=== PATIENT | female | born 1975 | race Caucasian/White ===

== ENCOUNTER 2021-12-26 13:09 | Inpatient (IN) | payer OTHER ==
[~2021-12-26] VITALS: Ht 165.1 cm; Wt 84.4 kg
[2021-12-26 13:42] VITALS: BP 157/91
[2021-12-26 14:41] LABS: BASO % 0.2 % (0.0-1.0); EOS % 0.2 % (1.0-4.0); HEMATOCRIT 38.5 % (37.0-47.0); LYMPH # 1.2 10*3/uL (1.3-4.4); LYMPH % 6.9 % (27.0-41.0); MEAN CELL VOLUME 89.3 fl (81.0-99.0); MEAN CORPUSCULAR HGB 29.9 pg (27.0-31.0); MEAN CORPUSCULAR HGB CONC 33.5 g/dl (33.0-37.0); MEAN PLATELET VOLUME 8.9 fl (9.6-12.3); MONO # 1.5 10*3/uL (0.1-1.0); MONO % 8.1 % (3.0-9.0); NEUT # 14.9 10*3/uL (2.3-7.9); NEUT % 83.9 % (47.0-73.0); PLATELET COUNT AUTOMATED 302 10*3/uL (130-400); RED BLOOD COUNT 4.31 10*6/uL (4.10-5.10); RED CELL DISTRI WIDTH 12.5 % (0-14.5); WHITE BLOOD COUNT 17.8 10*3/uL (4.8-10.8)
[2021-12-26 14:58] LABS: ALKALINE PHOSPHATASE 96 U/L (45-117); BUN 27 mg/dl (7-24); CHLORIDE 104 mmol/L (98-107); CPK 419 U/L (26-192); CREATININE 1.09 mg/dL (0.55-1.02); POTASSIUM 4.4 mmol/L (3.5-5.1); SGOT/AST 23 IU/L (3-35); SGPT/ALT 25 U/L (12-78); SODIUM 134 mmol/L (136-145); TOTAL PROTEIN 8.1 gm/dL (6.4-8.2)
[2021-12-26 15:09] LABS: ACT PARTIAL THROMBO TIME 32.8 SECONDS (20.0-32.1)
[2021-12-26 17:38] VITALS: BP 125/78
[2021-12-26 18:06] LABS: BILIRUBIN Negative (Negative); BLOOD Negative (Negative); CLARITY Cloudy (Clear); COLOR Yellow (Yellow); GLUCOSE Negative (Negative); KETONE Negative (Negative); LEUKO ESTERASE 2+ (Negative); NITRITE Negative (Negative); PH 5.5 (4.5-8.0); SPECIFIC GRAVITY >= 1.030 (1.001-1.030)
[2021-12-26 18:12] LABS: BACTERIA 1+; URINE AMPHETAMINES > 1000 (1000ng/ml); URINE BARBITURATES < 200 (200ng/ml); URINE BENZODIAZEPINES < 200 (200ng/ml); URINE CANNABINOIDS (THC) > 50 (50ng/ml); URINE COCAINE > 300 (300ng/ml); URINE METHADONE < 300 (300ng/ml); URINE OPIATES > 300 (300ng/ml)
[2021-12-26 18:15] LABS: URINE PHENCYCLIDINE < 25 (25ng/ml)
[2021-12-26 18:40] VITALS: BP 104/83
[2021-12-27] VITALS: BP 121/82
[2021-12-27 04:00] VITALS: BP 114/74
[2021-12-27 05:18] LABS: ALKALINE PHOSPHATASE 92 U/L (45-117); BUN 21 mg/dl (7-24); CHLORIDE 107 mmol/L (98-107); CHOLESTEROL 181 mg/dL (<200); CREATININE 0.88 mg/dL (0.55-1.02); POTASSIUM 3.8 mmol/L (3.5-5.1); SGOT/AST 14 IU/L (3-35); SGPT/ALT 22 U/L (12-78); SODIUM 137 mmol/L (136-145); TOTAL PROTEIN 6.9 gm/dL (6.4-8.2); TRIGLYCERIDES 111 mg/dl (<150)
[2021-12-27 05:19] LABS: CPK 243 U/L (26-192); LDL CHOLESTEROL 98 mg/dL (9-159)
[2021-12-27 06:24] LABS: BASO % 0.3 % (0.0-1.0); EOS # 0.2 10*3/uL (0.0-0.4); EOS % 1.5 % (1.0-4.0); HEMATOCRIT 36.4 % (37.0-47.0); LYMPH # 1.7 10*3/uL (1.3-4.4); LYMPH % 15.3 % (27.0-41.0); MEAN CORPUSCULAR HGB 29.7 pg (27.0-31.0); MEAN CORPUSCULAR HGB CONC 31.9 g/dl (33.0-37.0); MEAN PLATELET VOLUME 9.8 fl (9.6-12.3); MONO # 0.9 10*3/uL (0.1-1.0); MONO % 8.1 % (3.0-9.0); NEUT # 8.2 10*3/uL (2.3-7.9); NEUT % 74.3 % (47.0-73.0); PLATELET COUNT AUTOMATED 262 10*3/uL (130-400); RED BLOOD COUNT 3.91 10*6/uL (4.10-5.10)
[2021-12-27 06:36] LABS: MEAN CELL VOLUME 93.1 fl (81.0-99.0)
[2021-12-27 07:08] LABS: VITAMIN D, 25-HYDROXY 11.5 ng/mL (30-100)
[2021-12-27 08:00] VITALS: BP 121/69
[2021-12-27 12:00] VITALS: BP 117/69
[2021-12-27 16:00] VITALS: BP 110/68
[2021-12-27] MEDS ORDERED: CLINDAMYCIN HC300 MG PO (17:24)
[2021-12-27] MEDS ORDERED: CEPHALEXIN500 M1 PO (17:24)
[2021-12-27 20:00] VITALS: BP 113/62
[2021-12-28] VITALS: BP 101/65
[2021-12-28 06:07] LABS: HBSAG Negative (Negative); HEP B CORE AB, IGM Negative (Negative)
[2021-12-28 06:23] LABS: BUN 12 mg/dl (7-24); CHLORIDE 109 mmol/L (98-107); SODIUM 141 mmol/L (136-145)
[2021-12-28 06:31] LABS: BASO % 0.3 % (0.0-1.0); EOS # 0.1 10*3/uL (0.0-0.4); EOS % 1.9 % (1.0-4.0); HEMATOCRIT 33.4 % (37.0-47.0); LYMPH # 1.8 10*3/uL (1.3-4.4); LYMPH % 25.7 % (27.0-41.0); MEAN CELL VOLUME 92.8 fl (81.0-99.0); MEAN CORPUSCULAR HGB 29.7 pg (27.0-31.0); MEAN PLATELET VOLUME 9.7 fl (9.6-12.3); MONO # 0.6 10*3/uL (0.1-1.0); MONO % 8.5 % (3.0-9.0); NEUT # 4.4 10*3/uL (2.3-7.9); PLATELET COUNT AUTOMATED 238 10*3/uL (130-400); RED CELL DISTRI WIDTH 12.8 % (0-14.5)
[2021-12-28 08:00] VITALS: BP 109/62
[2021-12-30 15:07] LABS: HEPATITIS C ANTIBODY 7.5 (0.0-0.9)
== END 2021-12-28 13:50 | disposition home or self-care (01) | DRG 872 ==
LOC: ED 13:09 → EDHOLD 15:13 → 4E 15:13 → ICCU 16:50 → 4E 12-27 12:26
PROVIDERS: Emergency Medicine; Internal Medicine; Internal Medicine Infectious Disease; Student in an Organized Health Care Education/Training Program; ADMIT Emergency Medicine; ATTEND Emergency Medicine
DX: A41.9 Sepsis, unspecified organism (principal); L03.116 Cellulitis of left lower limb; E87.1 Hypo-osmolality and hyponatremia; E80.6 Other disorders of bilirubin metabolism; E78.5 Hyperlipidemia, unspecified; R73.9 Hyperglycemia, unspecified; I50.9 Heart failure, unspecified; F32.A Depression, unspecified; Z78.9 Other specified health status; Z88.8 Allergy status to other drugs, medicaments and biological substances; Z90.49 Acquired absence of other specified parts of digestive tract

== ENCOUNTER 2022-01-22 11:53 | Inpatient (IN) | payer MEDICAID ==
[~2022-01-22] VITALS: Ht 160 cm; Wt 83.5 kg
[~2022-01-22 11:53] MED LIST: CEPHALEXIN500 M1 PO; CLINDAMYCIN HC300 MG PO
[2022-01-22 12:01] VITALS: BP 111/84
[2022-01-22 12:40] LABS: BASO # 0.1 10*3/uL (0.0-0.1); BASO % 0.4 % (0.0-1.0); EOS # 0.1 10*3/uL (0.0-0.4); EOS % 0.5 % (1.0-4.0); HEMATOCRIT 38.3 % (37.0-47.0); LYMPH # 1.1 10*3/uL (1.3-4.4); LYMPH % 8.3 % (27.0-41.0); MEAN CELL VOLUME 89.3 fl (81.0-99.0); MEAN CORPUSCULAR HGB 29.8 pg (27.0-31.0); MEAN CORPUSCULAR HGB CONC 33.4 g/dl (33.0-37.0); MONO # 1.1 10*3/uL (0.1-1.0); MONO % 8.6 % (3.0-9.0); NEUT # 10.7 10*3/uL (2.3-7.9); NEUT % 81.5 % (47.0-73.0); PLATELET COUNT AUTOMATED 312 10*3/uL (130-400); RED BLOOD COUNT 4.29 10*6/uL (4.10-5.10); RED CELL DISTRI WIDTH 12.6 % (0-14.5); WHITE BLOOD COUNT 13.1 10*3/uL (4.8-10.8)
[2022-01-22 13:00] LABS: CREATININE 1.44 mg/dL (0.55-1.02); TOTAL PROTEIN 8.3 gm/dL (6.4-8.2)
[2022-01-22 15:04] LABS: BILIRUBIN Negative (Negative); BLOOD Negative (Negative); CLARITY Cloudy (Clear); COLOR Dark Yellow (Yellow); GLUCOSE Negative (Negative); KETONE Trace (Negative); LEUKO ESTERASE Trace (Negative); NITRITE Negative (Negative); SPECIFIC GRAVITY >= 1.030 (1.001-1.030)
[2022-01-22 15:12] LABS: EPITHELIAL CELLS 21-30; WBC 16-20 wbc/hpf (0-5)
[2022-01-22 15:13] LABS: BACTERIA 2+
[2022-01-22 15:48] LABS: URINE AMPHETAMINES > 1000 (1000ng/ml); URINE BARBITURATES < 200 (200ng/ml); URINE BENZODIAZEPINES < 200 (200ng/ml); URINE CANNABINOIDS (THC) > 50 (50ng/ml); URINE COCAINE < 300 (300ng/ml); URINE METHADONE < 300 (300ng/ml); URINE OPIATES < 300 (300ng/ml)
[2022-01-22 15:53] LABS: URINE PHENCYCLIDINE < 25 (25ng/ml)
[2022-01-22 16:00] VITALS: BP 110/78
[2022-01-22 17:12] VITALS: BP 122/78
[2022-01-22 20:30] VITALS: BP 120/56
[2022-01-23] VITALS: BP 93/67
[2022-01-23 06:36] LABS: BASO % 0.3 % (0.0-1.0); EOS # 0.2 10*3/uL (0.0-0.4); EOS % 2.1 % (1.0-4.0); HEMATOCRIT 34.1 % (37.0-47.0); LYMPH # 1.5 10*3/uL (1.3-4.4); LYMPH % 18.9 % (27.0-41.0); MEAN CELL VOLUME 91.7 fl (81.0-99.0); MEAN CORPUSCULAR HGB 29.8 pg (27.0-31.0); MEAN CORPUSCULAR HGB CONC 32.6 g/dl (33.0-37.0); MEAN PLATELET VOLUME 9.4 fl (9.6-12.3); MONO # 0.9 10*3/uL (0.1-1.0); MONO % 11.5 % (3.0-9.0); NEUT # 5.3 10*3/uL (2.3-7.9); NEUT % 66.2 % (47.0-73.0); PLATELET COUNT AUTOMATED 264 10*3/uL (130-400); RED BLOOD COUNT 3.72 10*6/uL (4.10-5.10); RED CELL DISTRI WIDTH 12.7 % (0-14.5)
[2022-01-23 06:57] LABS: CREATININE 1.35 mg/dL (0.55-1.02); URIC ACID 5.3 mg/dL (2.6-6.0)
[2022-01-23 09:00] VITALS: BP 114/84
[2022-01-23 12:00] VITALS: BP 105/65
[2022-01-23 16:00] VITALS: BP 105/64
[2022-01-23 20:00] VITALS: BP 117/70
[2022-01-23 23:15] VITALS: BP 109/79
[2022-01-24] VITALS: BP 123/73
[2022-01-24 00:17] LABS: BUN 19 mg/dl (7-24); CHLORIDE 107 mmol/L (98-107); CREATININE 1.08 mg/dL (0.55-1.02); POTASSIUM 4.2 mmol/L (3.5-5.1); SODIUM 138 mmol/L (136-145)
[2022-01-24 04:35] LABS: BUN 19 mg/dl (7-24); CHLORIDE 109 mmol/L (98-107); CREATININE 1.06 mg/dL (0.55-1.02); POTASSIUM 4.3 mmol/L (3.5-5.1); SODIUM 140 mmol/L (136-145)
[2022-01-24 08:00] VITALS: BP 109/66
[2022-01-24] MEDS ORDERED: VISTARIL25 M2 PO (08:36)
[2022-01-24] MEDS ORDERED: AMOX-CLAV 875-1 EACH PO (08:42)
== END 2022-01-24 12:00 | disposition home or self-care (01) | DRG 720 ==
LOC: ED 11:53 → 5E 13:58 → EDHOLD 13:58 → 5E 19:58
PROVIDERS: Internal Medicine; Nurse Practitioner Family; Registered Nurse; ADMIT Internal Medicine; ATTEND Internal Medicine
DX: A41.9 Sepsis, unspecified organism (principal); L03.115 Cellulitis of right lower limb; N17.0 Acute kidney failure with tubular necrosis; E87.1 Hypo-osmolality and hyponatremia; F17.210 Nicotine dependence, cigarettes, uncomplicated; F20.0 Paranoid schizophrenia; F32.A Depression, unspecified; F41.9 Anxiety disorder, unspecified; F14.90 Cocaine use, unspecified, uncomplicated; F15.90 Other stimulant use, unspecified, uncomplicated; Z88.8 Allergy status to other drugs, medicaments and biological substances; Z90.49 Acquired absence of other specified parts of digestive tract

== ENCOUNTER 2022-02-28 01:55 | Emergency (ER) | payer MEDICAID ==
[~2022-02-28 01:55] MED LIST changes: +AMOX-CLAV 875-1 EACH PO; +VISTARIL25 M2 PO
== END 2022-02-28 03:51 | disposition home or self-care (01) ==
LOC: ED 01:55
DX: T40.1X1A Poisoning by heroin, accidental (unintentional), initial encounter (principal); Z88.8 Allergy status to other drugs, medicaments and biological substances; Z90.49 Acquired absence of other specified parts of digestive tract; F14.90 Cocaine use, unspecified, uncomplicated; F17.210 Nicotine dependence, cigarettes, uncomplicated; Y92.89 Other specified places as the place of occurrence of the external cause

== ENCOUNTER 2022-04-16 21:06 | Emergency (ER) | payer MEDICAID ==
[~2022-04-16] VITALS: Ht 165.1 cm; Wt 86.2 kg
[2022-04-16 21:43] LABS: BASO # 0.1 10*3/uL (0.0-0.1); BASO % 0.5 % (0.0-1.0); EOS # 0.2 10*3/uL (0.0-0.4); EOS % 1.6 % (1.0-4.0); HEMATOCRIT 39.9 % (37.0-47.0); LYMPH % 18.7 % (27.0-41.0); MEAN CELL VOLUME 87.9 fl (81.0-99.0); MEAN CORPUSCULAR HGB 28.2 pg (27.0-31.0); MEAN CORPUSCULAR HGB CONC 32.1 g/dl (33.0-37.0); MEAN PLATELET VOLUME 8.7 fl (9.6-12.3); MONO # 1.1 10*3/uL (0.1-1.0); MONO % 9.8 % (3.0-9.0); NEUT # 7.4 10*3/uL (2.3-7.9); PLATELET COUNT AUTOMATED 384 10*3/uL (130-400); RED BLOOD COUNT 4.54 10*6/uL (4.10-5.10); RED CELL DISTRI WIDTH 13.2 % (0-14.5); WHITE BLOOD COUNT 10.9 10*3/uL (4.8-10.8)
[2022-04-16 21:58] LABS: POTASSIUM 4.3 mmol/L (3.4-5.1); TOTAL PROTEIN 7.6 gm/dL (6.0-8.0)
== END 2022-04-17 00:01 | disposition home or self-care (01) ==
LOC: ED 21:06
PROVIDERS: Emergency Medicine
DX: R07.89 Other chest pain (principal); Z88.8 Allergy status to other drugs, medicaments and biological substances; Z90.49 Acquired absence of other specified parts of digestive tract; F17.210 Nicotine dependence, cigarettes, uncomplicated; F14.90 Cocaine use, unspecified, uncomplicated

== ENCOUNTER 2022-10-29 13:27 | Emergency (ER) | payer MEDICAID ==
[~2022-10-29] VITALS: Ht 165.1 cm; Wt 92.1 kg
[2022-10-29 14:18] LABS: BASO % 0.6 % (0.0-1.0); EOS # 0.3 10*3/uL (0.0-0.4); EOS % 4.7 % (1.0-4.0); LYMPH # 0.9 10*3/uL (1.3-4.4); LYMPH % 13.3 % (27.0-41.0); MEAN CELL VOLUME 90.7 fl (81.0-99.0); MEAN CORPUSCULAR HGB 29.3 pg (27.0-31.0); MEAN CORPUSCULAR HGB CONC 32.3 g/dl (33.0-37.0); MEAN PLATELET VOLUME 8.6 fl (9.6-12.3); MONO # 0.4 10*3/uL (0.1-1.0); MONO % 5.5 % (3.0-9.0); NEUT # 5.3 10*3/uL (2.3-7.9); NEUT % 74.5 % (47.0-73.0); PLATELET COUNT AUTOMATED 279 10*3/uL (130-400); RED BLOOD COUNT 4.41 10*6/uL (4.10-5.10); RED CELL DISTRI WIDTH 12.5 % (0-14.5); WHITE BLOOD COUNT 7.1 10*3/uL (4.8-10.8)
[2022-10-29 14:39] LABS: ALKALINE PHOSPHATASE 124 U/L (46-116); BUN 7 mg/dl (9-23); CHLORIDE 105 mmol/L (98-107); POTASSIUM 3.5 mmol/L (3.4-5.1); SGPT/ALT 9 U/L (10-49); TOTAL PROTEIN 7.1 gm/dL (6.0-8.0)
[2022-10-29] MEDS ORDERED: AVPAK AZITHROM250 MG PO (15:37)
[2022-10-29] MEDS ORDERED: PREDNISONE20 M1 PO (15:37)
== END 2022-10-29 15:48 | disposition home or self-care (01) ==
LOC: ED 13:27
PROVIDERS: Nurse Practitioner
DX: J44.1 Chronic obstructive pulmonary disease with (acute) exacerbation (principal); I11.0 Hypertensive heart disease with heart failure; I50.9 Heart failure, unspecified; F41.9 Anxiety disorder, unspecified; F31.9 Bipolar disorder, unspecified; F90.9 Attention-deficit hyperactivity disorder, unspecified type; Z88.8 Allergy status to other drugs, medicaments and biological substances; Z90.49 Acquired absence of other specified parts of digestive tract; F17.210 Nicotine dependence, cigarettes, uncomplicated; F14.90 Cocaine use, unspecified, uncomplicated

== ENCOUNTER 2022-12-11 19:03 | Emergency (ER) | payer SELFPAY ==
[~2022-12-11] VITALS: Ht 165.1 cm; Wt 89.4 kg
[~2022-12-11 19:03] MED LIST changes: +AVPAK AZITHROM250 MG PO; +PREDNISONE20 M1 PO
[2022-12-11 20:03] LABS: HEMATOCRIT 33.5 % (37.0-47.0); MEAN CELL VOLUME 89.3 fl (81.0-99.0); MEAN CORPUSCULAR HGB 29.9 pg (27.0-31.0); MEAN CORPUSCULAR HGB CONC 33.4 g/dl (33.0-37.0); MEAN PLATELET VOLUME 8.3 fl (9.6-12.3); PLATELET COUNT AUTOMATED 227 10*3/uL (130-400); RED BLOOD COUNT 3.75 10*6/uL (4.10-5.10); RED CELL DISTRI WIDTH 12.8 % (0-14.5); WHITE BLOOD COUNT 7.5 10*3/uL (4.8-10.8)
[2022-12-11 20:11] LABS: MANUAL DIFF REFLEX YES
[2022-12-11 20:27] LABS: TOTAL CELLS COUNTED 100 #CELLS
[2022-12-11 20:28] LABS: PLATELET SUFFICIENCY NORMAL (NORMAL)
[2022-12-11 20:39] LABS: ALKALINE PHOSPHATASE 88 U/L (46-116); BUN 8 mg/dl (9-23); CHLORIDE 107 mmol/L (98-107); POTASSIUM 3.5 mmol/L (3.4-5.1); SGPT/ALT 13 U/L (10-49); TOTAL PROTEIN 6.1 gm/dL (6.0-8.0)
[2022-12-11] MEDS ORDERED: Motrin,Rufen800 MG PO (21:04)
[2022-12-11] MEDS ORDERED: TYLENOL325 M1 PO (21:04)
== END 2022-12-11 21:13 | disposition home or self-care (01) ==
LOC: ED 19:03
PROVIDERS: Physician Assistant Medical
DX: M54.12 Radiculopathy, cervical region (principal); R60.0 Localized edema; I11.0 Hypertensive heart disease with heart failure; I50.9 Heart failure, unspecified; F41.9 Anxiety disorder, unspecified; F31.9 Bipolar disorder, unspecified; F90.9 Attention-deficit hyperactivity disorder, unspecified type; Z88.8 Allergy status to other drugs, medicaments and biological substances; Z90.49 Acquired absence of other specified parts of digestive tract; F17.210 Nicotine dependence, cigarettes, uncomplicated; F14.90 Cocaine use, unspecified, uncomplicated

== ENCOUNTER 2023-01-11 18:07 | Emergency (ER) | payer OTHER ==
[~2023-01-11] VITALS: Ht 170.1 cm; Wt 72.6 kg
[~2023-01-11 18:07] MED LIST changes: +Motrin,Rufen800 MG PO; +TYLENOL325 M1 PO
== END 2023-01-11 20:56 | disposition home or self-care (01) ==
LOC: ED 18:07
DX: T40.601A Poisoning by unspecified narcotics, accidental (unintentional), initial encounter (principal); R40.4 Transient alteration of awareness; J44.9 Chronic obstructive pulmonary disease, unspecified; F41.9 Anxiety disorder, unspecified; F31.9 Bipolar disorder, unspecified; I11.0 Hypertensive heart disease with heart failure; I50.9 Heart failure, unspecified; M10.9 Gout, unspecified; R73.9 Hyperglycemia, unspecified; E78.5 Hyperlipidemia, unspecified; E87.1 Hypo-osmolality and hyponatremia; Z88.8 Allergy status to other drugs, medicaments and biological substances; Z90.49 Acquired absence of other specified parts of digestive tract; Z98.890 Other specified postprocedural states; F12.90 Cannabis use, unspecified, uncomplicated; F17.210 Nicotine dependence, cigarettes, uncomplicated; Y92.009 Unspecified place in unspecified non-institutional (private) residence as the place of occurrence of the external cause

== ENCOUNTER 2023-08-02 12:07 | Emergency (ER) | payer OTHER ==
[~2023-08-02] VITALS: Ht 165.1 cm; Wt 77.1 kg
[2023-08-02] MEDS ORDERED: IBUPROFEN 800 MG TAB PO ONE (12:25)
[2023-08-02] MEDS ORDERED: Motrin,Rufen800 MG PO (12:57)
== END 2023-08-02 13:02 | disposition home or self-care (01) ==
LOC: ED 12:07
DX: G58.9 Mononeuropathy, unspecified (principal); J44.9 Chronic obstructive pulmonary disease, unspecified; F41.9 Anxiety disorder, unspecified; F31.9 Bipolar disorder, unspecified; M10.9 Gout, unspecified; E78.5 Hyperlipidemia, unspecified; I11.0 Hypertensive heart disease with heart failure; I50.9 Heart failure, unspecified; F90.9 Attention-deficit hyperactivity disorder, unspecified type; F17.210 Nicotine dependence, cigarettes, uncomplicated; F14.90 Cocaine use, unspecified, uncomplicated; Z88.8 Allergy status to other drugs, medicaments and biological substances; Z90.49 Acquired absence of other specified parts of digestive tract

== ENCOUNTER 2023-11-12 17:31 | Emergency (ER) | payer MEDICARE, OTHER ==
[~2023-11-12] VITALS: Ht 165.1 cm; Wt 72.6 kg
[2023-11-12] MEDS ORDERED: BENZTROPINE MESY1 MG PO (17:58)
[2023-11-12] MEDS ORDERED: SERTRALINE HYD100 MG PO (17:58)
[2023-11-12] MEDS ORDERED: HYDROXYZINE PAM50 MG PO (17:58)
[2023-11-12] MEDS ORDERED: VRAYLAR4.5 MG PO (17:58)
[2023-11-12] MEDS ORDERED: Albuterol Sulf/Ipratropium 3 ML VIAL NEB ONE (18:05)
[2023-11-12] MEDS ORDERED: methylPREDNISolone sod succ 125 MG VIAL IM ONE (18:05)
[2023-11-12] MEDS ORDERED: PREDNISONE50 MG PO (20:31)
[2023-11-12] MEDS ORDERED: ALBUTEROL 8 GM INHALER INH ONE (20:35)
== END 2023-11-12 20:49 | disposition home or self-care (01) ==
LOC: ED 17:31
DX: J40 Bronchitis, not specified as acute or chronic (principal); I11.0 Hypertensive heart disease with heart failure; I50.9 Heart failure, unspecified; F41.9 Anxiety disorder, unspecified; F31.9 Bipolar disorder, unspecified; F90.9 Attention-deficit hyperactivity disorder, unspecified type; F17.210 Nicotine dependence, cigarettes, uncomplicated; F14.90 Cocaine use, unspecified, uncomplicated; Z88.8 Allergy status to other drugs, medicaments and biological substances; Z90.49 Acquired absence of other specified parts of digestive tract

== ENCOUNTER → 2023-11-22 | Outpatient (CLI) | payer MEDICARE, OTHER ==
[~2023-11-22] MED LIST changes: +BENZTROPINE MESY1 MG PO; +HYDROXYZINE PAM50 MG PO; +PREDNISONE50 MG PO; +SERTRALINE HYD100 MG PO; +VRAYLAR4.5 MG PO
[2023-11-22 17:44] LABS: BASO % 0.5 % (0.0-1.0); EOS # 0.2 10*3/uL (0.0-0.4); HEMATOCRIT 43.8 % (37.0-47.0); LYMPH # 2.7 10*3/uL (1.3-4.4); LYMPH % 36.5 % (27.0-41.0); MEAN CELL VOLUME 91.3 fl (81.0-99.0); MEAN CORPUSCULAR HGB 28.1 pg (27.0-31.0); MEAN CORPUSCULAR HGB CONC 30.8 g/dl (33.0-37.0); MONO # 0.5 10*3/uL (0.1-1.0); MONO % 6.9 % (3.0-9.0); NEUT # 3.9 10*3/uL (2.3-7.9); NEUT % 52.6 % (47.0-73.0); PLATELET COUNT AUTOMATED 353 10*3/uL (130-400); RED CELL DISTRI WIDTH 13.1 % (0-14.5); WHITE BLOOD COUNT 7.4 10*3/uL (4.8-10.8)
[2023-11-22 18:06] LABS: ALKALINE PHOSPHATASE 111 U/L (46-116); BUN 11 mg/dl (9-23); CHLORIDE 103 mmol/L (98-107); CHOLESTEROL 178 mg/dL (<200); LDL CHOLESTEROL 82 mg/dL (9-159); POTASSIUM 3.7 mmol/L (3.4-5.1); SGPT/ALT 7 U/L (5-49); TOTAL PROTEIN 7.6 gm/dL (6.0-8.0); TRIGLYCERIDES 284 mg/dl (<150)
[2023-11-22 18:07] LABS: PHENYTOIN (DILANTIN) < 2.0 ug/ml (10-20)
== END | disposition home or self-care (01) ==
LOC: LAB 17:19
PROVIDERS: ATTEND Nurse Practitioner Family
DX: R56.9 Unspecified convulsions (principal); Z79.899 Other long term (current) drug therapy

== ENCOUNTER → 2023-12-06 | Outpatient (CLI) | payer MEDICARE, OTHER ==
[2023-12-06 14:10] LABS: TOTAL PROTEIN 7.7 gm/dL (6.0-8.0)
== END | disposition home or self-care (01) ==
LOC: LAB 13:28
PROVIDERS: ATTEND Nurse Practitioner Family
DX: R56.9 Unspecified convulsions (principal)

== ENCOUNTER 2023-12-18 10:09 | Emergency (ER) | payer OTHER ==
[~2023-12-18] VITALS: Ht 165.1 cm; Wt 84.4 kg
[2023-12-18] MEDS ORDERED: SODIUM CHLORIDE 0.9% 1,000 ML IV ONE (10:30)
[2023-12-18] MEDS ORDERED: MORPHINE Sulfate 2 MG/ML SYR IV ONE (10:30)
[2023-12-18] MEDS ORDERED: IOHEXOL 300 MG/ML 100 ML VIAL IV ONE (10:35)
[2023-12-18 10:53] LABS: BASO % 0.2 % (0.0-1.0); EOS % 0.2 % (1.0-4.0); HEMATOCRIT 41.1 % (37.0-47.0); LYMPH # 1.5 10*3/uL (1.3-4.4); LYMPH % 12.7 % (27.0-41.0); MEAN CELL VOLUME 86.5 fl (81.0-99.0); MEAN CORPUSCULAR HGB 29.1 pg (27.0-31.0); MEAN CORPUSCULAR HGB CONC 33.6 g/dl (33.0-37.0); MEAN PLATELET VOLUME 8.7 fl (9.6-12.3); MONO # 0.3 10*3/uL (0.1-1.0); MONO % 2.8 % (3.0-9.0); NEUT % 83.4 % (47.0-73.0); PLATELET COUNT AUTOMATED 333 10*3/uL (130-400); RED BLOOD COUNT 4.75 10*6/uL (4.10-5.10); RED CELL DISTRI WIDTH 12.6 % (0-14.5); WHITE BLOOD COUNT 12.1 10*3/uL (4.8-10.8)
[2023-12-18] MEDS ORDERED: SODIUM CHLORIDE 0.9% 1,000 ML IV SCH (11:00)
[2023-12-18 11:04] LABS: ACT PARTIAL THROMBO TIME 28.8 SECONDS (20.0-32.1)
[2023-12-18 11:15] LABS: ALKALINE PHOSPHATASE 107 U/L (46-116); BUN 11 mg/dl (9-23); CHLORIDE 102 mmol/L (98-107); LIPASE 60 U/L (12-53); POTASSIUM 4.2 mmol/L (3.4-5.1); SGPT/ALT 8 U/L (5-49); TOTAL PROTEIN 7.3 gm/dL (6.0-8.0)
[2023-12-18 11:18] LABS: ETHYL ALCOHOL < 3.0 mg/dl (<3)
[2023-12-18 12:31] LABS: URINE AMPHETAMINES Positive (1000ng/ml); URINE BARBITURATES Negative (200ng/ml); URINE BENZODIAZEPINES Negative (200ng/ml); URINE CANNABINOIDS (THC) Positive (50ng/ml); URINE COCAINE Negative (300ng/ml); URINE METHADONE Negative (300ng/ml); URINE OPIATES Positive (300ng/ml); URINE PHENCYCLIDINE Negative (25ng/ml)
[2023-12-18 12:36] LABS: BILIRUBIN Negative (Negative); BLOOD Negative (Negative); CLARITY Clear (Clear); COLOR Yellow (Yellow); GLUCOSE Negative (Negative); KETONE Negative (Negative); LEUKO ESTERASE Negative (Negative); NITRITE Negative (Negative); SPECIFIC GRAVITY >= 1.030 (1.001-1.030); UROBILINOGEN 0.2 E.U./dl (0.0-1.0)
[2023-12-18 12:44] LABS: RBC 0-2 rbc/hpf (0-2)
[2023-12-18] MEDS ORDERED: CITROMA296 ML PO (13:51)
== END 2023-12-18 13:59 | disposition home or self-care (01) ==
LOC: ED 10:09
PROVIDERS: Internal Medicine
DX: K59.00 Constipation, unspecified (principal); R11.2 Nausea with vomiting, unspecified; I11.0 Hypertensive heart disease with heart failure; I50.9 Heart failure, unspecified; F41.9 Anxiety disorder, unspecified; F31.9 Bipolar disorder, unspecified; F90.9 Attention-deficit hyperactivity disorder, unspecified type; J45.909 Unspecified asthma, uncomplicated; F17.210 Nicotine dependence, cigarettes, uncomplicated; F14.90 Cocaine use, unspecified, uncomplicated; Z88.8 Allergy status to other drugs, medicaments and biological substances; Z90.49 Acquired absence of other specified parts of digestive tract; Z79.899 Other long term (current) drug therapy

== ENCOUNTER 2023-12-19 00:42 | Emergency (ER) | payer OTHER ==
[~2023-12-19] VITALS: Ht 165.1 cm; Wt 81.6 kg
[~2023-12-19 00:42] MED LIST changes: +CITROMA296 ML PO
[2023-12-19] MEDS ORDERED: LORazepam 1 MG TAB PO ONE (00:55)
== END 2023-12-19 03:22 | disposition home or self-care (01) ==
LOC: ED 00:42
DX: R10.84 Generalized abdominal pain (principal); I50.9 Heart failure, unspecified; I11.0 Hypertensive heart disease with heart failure; F41.9 Anxiety disorder, unspecified; F31.9 Bipolar disorder, unspecified; F90.9 Attention-deficit hyperactivity disorder, unspecified type; J45.909 Unspecified asthma, uncomplicated; F17.210 Nicotine dependence, cigarettes, uncomplicated; F15.90 Other stimulant use, unspecified, uncomplicated; F14.90 Cocaine use, unspecified, uncomplicated; Z88.8 Allergy status to other drugs, medicaments and biological substances; Z90.49 Acquired absence of other specified parts of digestive tract

== ENCOUNTER 2024-05-05 01:13 | Emergency (ER) | payer OTHER ==
[~2024-05-05] VITALS: Ht 165.1 cm; Wt 72.6 kg
[2024-05-05] MEDS ORDERED: methylPREDNISolone sod succ 125 MG VIAL IM ONE (01:25)
== END 2024-05-05 01:54 | disposition home or self-care (01) ==
LOC: ED 01:13
DX: M25.562 Pain in left knee (principal); M79.89 Other specified soft tissue disorders; M19.90 Unspecified osteoarthritis, unspecified site; I11.0 Hypertensive heart disease with heart failure; I50.9 Heart failure, unspecified; F41.9 Anxiety disorder, unspecified; F31.9 Bipolar disorder, unspecified; F90.9 Attention-deficit hyperactivity disorder, unspecified type; J45.909 Unspecified asthma, uncomplicated; F17.210 Nicotine dependence, cigarettes, uncomplicated; F14.90 Cocaine use, unspecified, uncomplicated; Z88.8 Allergy status to other drugs, medicaments and biological substances; Z90.49 Acquired absence of other specified parts of digestive tract

== ENCOUNTER 2024-08-11 15:01 | Emergency (ER) | payer OTHER ==
[~2024-08-11] VITALS: Ht 162.5 cm; Wt 80.3 kg
[2024-08-11] MEDS ORDERED: MG-AL HYDROXIDE/SIMETICONE 30 ML UDC PO STA (15:21)
[2024-08-11] MEDS ORDERED: Lidocaine Hydrochloride 15 ML UDC PO STA (15:21)
[2024-08-11] MEDS ORDERED: Dicyclomine Hydrochloride 20 MG/10 ML OSYR PO STA (15:21)
[2024-08-11] MEDS ORDERED: Ondansetron Hydrochloride 4 MG/2 ML VIAL IV ONE (15:25)
[2024-08-11] MEDS ORDERED: IOHEXOL 300 MG/ML 100 ML VIAL IV ONE (15:50)
[2024-08-11 19:34] LABS: BASO % 0.2 % (0.0-1.0); EOS % 0.5 % (1.0-4.0); HEMATOCRIT 43.9 % (37.0-47.0); MEAN CELL VOLUME 84.9 fl (81.0-99.0); MEAN CORPUSCULAR HGB 28.2 pg (27.0-31.0); MEAN CORPUSCULAR HGB CONC 33.3 g/dl (33.0-37.0); MEAN PLATELET VOLUME 9.5 fl (9.6-12.3); MONO # 0.2 10*3/uL (0.1-1.0); MONO % 1.8 % (3.0-9.0); NEUT # 7.2 10*3/uL (2.3-7.9); PLATELET COUNT AUTOMATED 350 10*3/uL (130-400); RED BLOOD COUNT 5.17 10*6/uL (4.10-5.10); RED CELL DISTRI WIDTH 12.5 % (0-14.5); WHITE BLOOD COUNT 8.3 10*3/uL (4.8-10.8)
[2024-08-11] MEDS ORDERED: Pantoprazole Sodium 40 MG VIAL IV ONE (19:40)
[2024-08-11 20:15] LABS: ALKALINE PHOSPHATASE 106 U/L (46-116); BUN 8 mg/dl (9-23); CHLORIDE 101 mmol/L (98-107); LIPASE 42 U/L (12-53); POTASSIUM 3.9 mmol/L (3.4-5.1); SGPT/ALT 13 U/L (5-49); TOTAL PROTEIN 8.1 gm/dL (6.0-8.0)
[2024-08-11] MEDS ORDERED: MORPHINE Sulfate 2 MG/ML SYR IV ONE ×2 (20:25→21:30)
[2024-08-12 00:44] LABS: BILIRUBIN Negative (Negative); BLOOD Negative (Negative); CLARITY Clear (Clear); COLOR Yellow (Yellow); GLUCOSE Negative (Negative); KETONE Trace (Negative); LEUKO ESTERASE Negative (Negative); NITRITE Negative (Negative); PH 7.5 (4.5-8.0); SPECIFIC GRAVITY >= 1.030 (1.001-1.030); UROBILINOGEN 0.2 E.U./dl (0.0-1.0)
[2024-08-12 00:50] LABS: URINE AMPHETAMINES Positive (1000ng/ml); URINE BARBITURATES Negative (200ng/ml); URINE BENZODIAZEPINES Negative (200ng/ml); URINE CANNABINOIDS (THC) Positive (50ng/ml); URINE COCAINE Negative (300ng/ml); URINE METHADONE Negative (300ng/ml); URINE OPIATES Positive (300ng/ml); URINE PHENCYCLIDINE Negative (25ng/ml)
[2024-08-12 01:35] LABS: EPITHELIAL CELLS 16-20
[2024-08-12 01:36] LABS: BACTERIA 2+
[2024-08-12] MEDS ORDERED: PROTONIX40 MG PO (02:27)
[2024-08-12] MEDS ORDERED: MORPHINE Sulfate 2 MG/ML SYR IV ONE (02:30)
== END 2024-08-12 02:30 | disposition home or self-care (01) ==
LOC: ED 15:01
PROVIDERS: Emergency Medicine; Internal Medicine
DX: K29.70 Gastritis, unspecified, without bleeding (principal); I11.0 Hypertensive heart disease with heart failure; I50.9 Heart failure, unspecified; J45.909 Unspecified asthma, uncomplicated; F32.A Depression, unspecified; F41.9 Anxiety disorder, unspecified; F17.200 Nicotine dependence, unspecified, uncomplicated; Z79.899 Other long term (current) drug therapy; Z88.8 Allergy status to other drugs, medicaments and biological substances; Z90.49 Acquired absence of other specified parts of digestive tract

== ENCOUNTER → 2024-08-12 | Outpatient (CLI) | payer OTHER ==
[~2024-08-12] MED LIST changes: +PROTONIX40 MG PO
== END | disposition home or self-care (01) ==
LOC: MAMMO 07-15 17:00
PROVIDERS: ATTEND Nurse Practitioner Family
DX: Z12.31 Encounter for screening mammogram for malignant neoplasm of breast (principal); N63.25 Unspecified lump in the left breast, overlapping quadrants; N63.14 Unspecified lump in the right breast, lower inner quadrant; N63.11 Unspecified lump in the right breast, upper outer quadrant; M25.462 Effusion, left knee; M25.562 Pain in left knee

== ENCOUNTER 2024-11-02 14:15 | Emergency (ER) | payer OTHER ==
[~2024-11-02] VITALS: Ht 162.5 cm; Wt 80.0 kg
[2024-11-02 14:24] VITALS: BP 137/85
[2024-11-02] MEDS ORDERED: Albuterol Sulf/Ipratropium 3 ML VIAL NEB ONE ×2 (14:35→17:20)
[2024-11-02 15:08] LABS: BASO # 0.0 10*3/uL (0.0-0.1); BASO % 0.5 % (0.0-1.0); EOS # 0.2 10*3/uL (0.0-0.4); EOS % 2.2 % (1.0-4.0); MEAN CELL VOLUME 87.2 fl (81.0-99.0); MEAN CORPUSCULAR HGB 28.6 pg (27.0-31.0); MEAN PLATELET VOLUME 9.2 fl (9.6-12.3); MONO # 0.5 10*3/uL (0.1-1.0); MONO % 6.9 % (3.0-9.0); NEUT # 5.6 10*3/uL (2.3-7.9); NEUT % 76.8 % (47.0-73.0); NUCLEATED RED BLOOD CELL 0.0 % (0.0-0.0); NUCLEATED RED BLOOD CELL 0.0 10*3/uL (0.0-0.0); PLATELET COUNT AUTOMATED 312 10*3/uL (130-400); RED CELL DISTRI WIDTH 13.0 % (0-14.5)
[2024-11-02 15:27] LABS: BUN 11 mg/dl (9-23)
[2024-11-02] MEDS ORDERED: SODIUM CHLORIDE 0.9% 1,000 ML IV ONE (15:40)
[2024-11-02] MEDS ORDERED: AZITHROMYCIN 250 ML IV ONE (17:20)
[2024-11-02] MEDS ORDERED: PREDNISONE20 M1 PO (17:29)
[2024-11-02] MEDS ORDERED: ZITHROMAX250 MG PO (17:29)
[2024-11-02] MEDS ORDERED: VENT7GM INH (17:30)
== END 2024-11-02 18:36 | disposition admitted as inpatient to this hospital (09) ==
LOC: ED 14:15 → EDHOLD 17:21 → ED 17:21 → ICCU 17:28 → EDHOLD 17:28 → ED 18:36
PROVIDERS: Nurse Practitioner Family
DX: J44.1 Chronic obstructive pulmonary disease with (acute) exacerbation (principal); J98.4 Other disorders of lung; E87.20 Acidosis, unspecified; F17.210 Nicotine dependence, cigarettes, uncomplicated; Z20.822 Contact with and (suspected) exposure to COVID-19; Z88.8 Allergy status to other drugs, medicaments and biological substances; Z79.899 Other long term (current) drug therapy; Z90.49 Acquired absence of other specified parts of digestive tract

== ENCOUNTER 2024-11-03 18:24 | Inpatient (IN) | payer OTHER ==
[~2024-11-03] VITALS: Ht 162.5 cm; Wt 82.6 kg
[~2024-11-03 18:24] MED LIST changes: +VENT7GM INH; +ZITHROMAX250 MG PO
[2024-11-03 18:43] VITALS: BP 138/68
[2024-11-03] MEDS ORDERED: Albuterol Sulf/Ipratropium 3 ML VIAL NEB ONE (19:45)
[2024-11-03] MEDS ORDERED: Acetaminophen/Hydrocodone HP 10/325 PO ONE (19:55)
[2024-11-03 19:56] LABS: MEAN CELL VOLUME 89.7 fl (81.0-99.0); MEAN CORPUSCULAR HGB 28.8 pg (27.0-31.0); MEAN PLATELET VOLUME 9.1 fl (9.6-12.3); NUCLEATED RED BLOOD CELL 0.0 % (0.0-0.0); NUCLEATED RED BLOOD CELL 0.0 10*3/uL (0.0-0.0); PLATELET COUNT AUTOMATED 306 10*3/uL (130-400); RED CELL DISTRI WIDTH 13.2 % (0-14.5)
[2024-11-03 20:02] VITALS: BP 133/65
[2024-11-03 20:24] LABS: MANUAL DIFF REFLEX YES
[2024-11-03 20:27] LABS: BUN 19 mg/dl (9-23)
[2024-11-03] MEDS ORDERED: ACETAMINOPHEN 325 MG TAB PO PRN (20:35)
[2024-11-03] MEDS ORDERED: Acetaminophen/Hydrocodone 5 MG/325 MG TABLET PO PRN (20:35)
[2024-11-03] MEDS ORDERED: ACETAMINOPHEN 650 MG SUPP R PRN (20:35)
[2024-11-03] MEDS ORDERED: Ondansetron Hydrochloride 4 MG/2 ML VIAL IV PRN (20:35)
[2024-11-03 20:37] VITALS: BP 129/67
[2024-11-03] MEDS ORDERED: Albuterol Sulf/Ipratropium 3 ML VIAL NEB SCH (20:40)
[2024-11-03 21:00] LABS: PLATELET SUFFICIENCY NORMAL (NORMAL)
[2024-11-03 21:37] VITALS: BP 139/59
[2024-11-03] MEDS ORDERED: GUAIFENESIN 600 MG TAB ER PO SCH (22:00)
[2024-11-04 00:08] VITALS: BP 129/83
[2024-11-04 02:49] LABS: MEAN CELL VOLUME 89.5 fl (81.0-99.0); MEAN CORPUSCULAR HGB 28.2 pg (27.0-31.0); MEAN PLATELET VOLUME 9.1 fl (9.6-12.3); NUCLEATED RED BLOOD CELL 0.0 % (0.0-0.0); NUCLEATED RED BLOOD CELL 0.0 10*3/uL (0.0-0.0); PLATELET COUNT AUTOMATED 297 10*3/uL (130-400); RED CELL DISTRI WIDTH 13.4 % (0-14.5)
[2024-11-04 03:02] LABS: MANUAL DIFF REFLEX YES
[2024-11-04 03:15] LABS: PLATELET SUFFICIENCY NORMAL (NORMAL)
[2024-11-04 03:37] LABS: BUN 18 mg/dl (9-23); LDL CHOLESTEROL 95 mg/dL (9-159); SGPT/ALT 35 U/L (5-49)
[2024-11-04 03:59] LABS: VITAMIN D, 25-HYDROXY 29.4 ng/mL (30-100)
[2024-11-04] MEDS ORDERED: SODIUM CHLORIDE 0.9% 1,000 ML IV ONE (05:35)
[2024-11-04 08:00] VITALS: BP 128/94
[2024-11-04] MEDS ORDERED: NATURE'S BLEND F1 MG PO (09:59)
[2024-11-04] MEDS ORDERED: TRINTELLIX10 MG PO (10:00)
[2024-11-04] MEDS ORDERED: Cholecalciferol 2,000 UNIT TABLET (50 MCG) PO SCH (10:00)
[2024-11-04 12:00] VITALS: BP 159/93
[2024-11-04] MEDS ORDERED: Acetaminophen/Hydrocodone 5 MG/325 MG TABLET PO PRN (13:32)
[2024-11-04] MEDS ORDERED: ACETAMINOPHEN 60 ML IV PRN (13:35)
[2024-11-04 16:00] VITALS: BP 159/113
[2024-11-04 20:00] VITALS: BP 130/67
[2024-11-04] MEDS ORDERED: VORTIOXETINE HYDROBROMIDE 10 MG TAB PO SCH (22:00)
[2024-11-04] MEDS ORDERED: CARIPRAZINE HCL 3 MG CAPSULE PO SCH (22:00)
[2024-11-05] VITALS: BP 131/82
[2024-11-05 06:28] LABS: BASO # 0.0 10*3/uL (0.0-0.1); BASO % 0.2 % (0.0-1.0); EOS # 0.0 10*3/uL (0.0-0.4); EOS % 0.0 % (1.0-4.0); MEAN CELL VOLUME 91.4 fl (81.0-99.0); MEAN CORPUSCULAR HGB 28.5 pg (27.0-31.0); MEAN PLATELET VOLUME 9.2 fl (9.6-12.3); MONO # 0.3 10*3/uL (0.1-1.0); MONO % 2.6 % (3.0-9.0); NEUT # 11.3 10*3/uL (2.3-7.9); NEUT % 88.0 % (47.0-73.0); NUCLEATED RED BLOOD CELL 0.0 % (0.0-0.0); NUCLEATED RED BLOOD CELL 0.0 10*3/uL (0.0-0.0); PLATELET COUNT AUTOMATED 335 10*3/uL (130-400); RED CELL DISTRI WIDTH 13.7 % (0-14.5)
[2024-11-05 07:09] LABS: BUN 13 mg/dl (9-23)
[2024-11-05 08:00] VITALS: BP 148/86
[2024-11-05] MEDS ORDERED: DILANTIN100 MG PO (09:59)
[2024-11-05] MEDS ORDERED: FOLIC ACID 1 MG TAB PO SCH (10:00)
[2024-11-05] MEDS ORDERED: TRAMADOL HCL50 MG PO (10:01)
[2024-11-05] MEDS ORDERED: DOXYCYCLINE HY100 M3 PO (10:01)
[2024-11-05] MEDS ORDERED: VITAMIN D350 MCG PO (10:01)
== END 2024-11-05 11:45 | disposition home or self-care (01) | DRG 720 ==
LOC: ED 18:24 → EDHOLD 20:02 → 4E 20:02
PROVIDERS: Nurse Practitioner Family; Student in an Organized Health Care Education/Training Program; ADMIT Student in an Organized Health Care Education/Training Program; ATTEND Student in an Organized Health Care Education/Training Program
DX: A41.9 Sepsis, unspecified organism (principal); J84.114 Acute interstitial pneumonitis; E87.20 Acidosis, unspecified; M94.0 Chondrocostal junction syndrome [Tietze]; J44.1 Chronic obstructive pulmonary disease with (acute) exacerbation; E78.5 Hyperlipidemia, unspecified; F31.9 Bipolar disorder, unspecified; M10.9 Gout, unspecified; I11.0 Hypertensive heart disease with heart failure; I50.9 Heart failure, unspecified; R73.9 Hyperglycemia, unspecified; Z88.8 Allergy status to other drugs, medicaments and biological substances; Z90.49 Acquired absence of other specified parts of digestive tract; Z86.19 Personal history of other infectious and parasitic diseases